=== PATIENT | female | born 1975 | race Caucasian/White ===

== ENCOUNTER 2019-11-14 18:06 | Emergency (ER) | payer OTHER, SELFPAY ==
[2019-11-14 18:24] VITALS: BP 98/59; PULSE 86; RESP 20; TEMP 36.9; O2SAT 100
--- NOTE | 2019-11-14 19:22 | ED.URI ---
HPI - URI/Sore Throat General Chief Complaint: Upper Respiratory Infection Stated Complaint: NINA/NAUSEA/COUGH/LUNGS HEAVY/PAINFUL URINATION/FEVE Time Seen by Provider: 11/14/19 19:09 Source: patient Mode of arrival: ambulatory Limitations: no limitations History of Present Illness HPI Narrative: 44-year-old female presents for evaluation of cough, fever max 100.9, nasal congestion, body aches, rhinorrhea, chest fullness that developed yesterday. She has been exposed to her with similar symptoms. She is also reporting increased urination that developed last night along with occasional burning after urinary stream. She states she has not had an appetite and has not drink any fluids since yesterday. Urine is more concentrated. She reports normal amounts of urine today. She is used Mucinex and Tylenol for her symptoms. No prior history of urinary tract infections, renal stones. She denies any shortness of breath, chest pain, wheezing, abdominal pain, flank pain, vomiting, diarrhea, weakness Related Data Home Medications Medication Instructions Recorded Confirmed acetaminophen [Tylenol] 325 mg PO ONCE PRN 11/14/19 11/14/19 cetirizine [Zyrtec] 10 mg PO DAILY 11/14/19 11/14/19 Allergies Allergy/AdvReac Type Severity Reaction Status Date / Time No Known Allergies Allergy Verified 11/14/19 18:33 Review of Systems Review of Systems: Narrative: CONSTITUTIONAL: Reports fever, chills, sweats. EYES: Denies visual changes, redness, or discharge. ENT: Reports rhinorrhea, congestion. Denies sore throat, otalgia. CARDIOVASCULAR: Denies chest pain, palpitations, or edema. RESPIRATORY: Denies wheezing, dyspnea. Reports cough, chest fullness GASTROINTESTINAL: Denies abdominal pain, vomiting, or diarrhea. Reports nausea GENITOURINARY: Denies hematuria, malordous urine. Reports urinary frequency, occasional dysuria after urinary stream. SKIN: Denies rash or itching. MUSCULOSKELETAL: Denies back pain, joint pain, swelling. Reports myalgias. NEUROLOGIC: Denies headache, numbness, or weakness. All systems reviewed & are unremarkable except as noted in HPI and below [facility] Family History Family History (Updated 04/22/16 @ 23:19 by DOCTOR UNKNOWN) Father Carcinoma of colon, Onset Age: 61 Family history of type 2 diabetes mellitus Family history of diabetes mellitus in first degree relative Patient's father is Social History Social History Smoking status: Never smoker Alcohol intake: current Comments At the time of my signature, I agree with nursing past medical, surgical, social and family history. There is no relevant family history pertinent to the presenting complaint. Exam Narrative: Exam Narrative: GENERAL: No distress, well appearing, well nourished, alert and calm HEAD: Normocephalic, atraumatic. No sinus tenderness noted EYES: Pupils equal, round. Extraocular movements intact. Conjunctivae without redness or drainage. EARS: Tympanic membranes without erythema. TM landmarks intact with good light reflex. Ear canals without discharge. NOSE: Nares patent. Nasal turbinates noninflamed. No nasal discharge MOUTH: Mucous membranes moist. No lesions. No cyanosis. Dentition grossly normal. THROAT: Oropharynx without signs erythema, exudates or lesions. Tonsils not enlarged. NECK: Supple. No lymphadenopathy. RESPIRATORY: Airway patent. Chest clear to auscultation bilaterally. Breath sounds equal bilaterally. No retractions. CARDIOVASCULAR: Regular rate and rhythm. No murmurs, rubs, gallops, or clicks. Capillary refill <2 seconds. GASTROINTESTINAL: Soft, nontender, non-distended. Bowel sounds normoactive. No masses. No organomegaly. No CVA tenderness MUSCULOSKELETAL: Range of motion grossly normal in all four extremities. Strength grossly normal in all four extremities. No edema. No swelling SKIN: Color normal. Warm and dry. No rashes. NEURO: Alert. Motor intact in all extremities. Muscle tone
== END 2019-11-14 19:37 | disposition home or self-care (01) ==
PROVIDERS: Emergency Provider Nurse Practitioner; PCP Family Medicine
DX: J10.1 Influenza due to other identified influenza virus with other respiratory manifestations (principal); R35.0 Frequency of micturition
CPT/HCPCS: 81003; 87086; 87088; 87804; 99213; G0463

== ENCOUNTER 2020-06-11 11:40 | Day surgery (SDC) | payer OTHER, SELFPAY ==
[2020-06-11] VITALS (11 sets, daily range): BP systolic 94–119; BP diastolic 50–72; PULSE 66–105; RESP 13–18; TEMP 36.4–36.7; O2SAT 98–100; BMI 24.6
--- NOTE | ~2020-06-11 | CT_ITS ---
EXAMINATION: CT abdomen pelvis w con DATE: 06/11/2020 13:54 INDICATION: Abdomen pain, nausea and vomiting TECHNIQUE: Computed tomography (CT) of the abdomen and pelvis was performed with 100 cc Omnipaque 350 intravenous contrast. The dose-length product was 306.25 mGy-cm. Automated exposure control and iter ative reconstruction technique were employed. COMPARISON: None. FINDINGS: Lung bases unremarkable. No significant pleural or pericardial effusion. Heart size normal. No significant vascular abnormality. No lymphadenopathy. Fatty infiltration of the liver. The spleen, pancreas, adrenal glands and kidneys are unremarkable. G allbladder is present. There is a thickened enhancing appendix containing appendicoliths and surround ing inflammatory change, compatible with acute appendicitis. No evidence for perforation. Appendix me asures 11 mm transverse. Small amount of free fluid in the pelvis. There is fluid in the small bowel, likely ileus. No lymphadenopathy. No acute osseous abnormality. IMPRESSION: 1. Acute uncomplicated appendicitis. Reviewed, dictated and finalized at location B.
[2020-06-11 12:26] LABS: Basophils Absolute Auto 0.1 K/mm3 (0.0-0.1); Basophils Percent Auto 0.4 % (0.2-1.2); Eosinophils Absolute Auto 0.5 K/mm3 (0-0.3); Eosinophils Percent Auto 3.6 % (0-4.4); Hemoglobin 9.4 g/dL (12.0-15.0); Immature Granulocyte Absolute 0.07 K/mm3 (0.00-0.031); Immature Granulocyte Percent A 0.5 % (0-0.5); Lymphocytes Absolute Auto 1.22 K/mm3 (0.9-3.2); Lymphocytes Percent Auto 8.6 % (18.3-44.2); Mean Corpuscular HGB Conc 31.3 g/dl (32-36); Mean Corpuscular Hemoglobin 24.3 pg (26-34); Mean Corpuscular Volume 77.5 fl (80-100); Mean Platelet Volume 10.6 fl (7.4-10.4); Monocytes Percent Auto 6.9 % (2.6-8.5); Neutrophils Absolute Auto 11.4 K/mm3 (1.3-6.7); Platelet Count Result 213 k/mm3 (150-375); Red Blood Count 3.87 M/mm3 (4.2-5.4); Red Cell Distribution Width 16.1 % (11.5-14.5); White Blood Count 14.3 K/mm3 (4.5-10.0)
[2020-06-11 12:34] LABS: Add Urine Microscopic? YES; Appearance Urine Clear (Clear); Bacteria Urine Trace /hpf; Bilirubin Urine Negative (Negative); Blood Urine 1+ (Negative); Color Urine Yellow (Yellow); Glucose Urine UA Negative (Negative); Ketones Urine 1+ mg/dL (Negative); Leukocyte Esterase Ur Trace LEU/UL (Negative); Mucus Urine Rare /lpf; Nitrate Urine Negative (Negative); Protein Urine Negative (Negative); Squamous Epithelial Cell Urine Many /hpf (Few); Urobilinogen Urine Negative mg/dL (<2.0)
[2020-06-11 12:46] LABS: Alanine Aminotransferase 13 U/L (4-35); Albumin Level 4.1 g/dL (3.5-5.1); Alkaline Phosphatase 40 U/L (38-126); Anion Gap 7 mmol/L (8-16); Aspartate Amino Transferase 21 U/L (14-36); Bilirubin,Total 0.9 mg/dL (0.2-1.3); Blood Urea Nitrogen 9 mg/dL (7-17); Calcium 8.8 mg/dL (8.4-10.2); Carbon Dioxide 25 mmol/L (22-30); Chloride 102 mmol/L (98-107); Estimated CRCL calculation 62 ml/min; Estimated Glomerular Filt Rate > 60; Glucose 106 mg/dL (65-105); Lipase 39 U/L (23-300); Sodium 134 mmol/L (137-145)
--- NOTE | 2020-06-11 14:06 | ED.ABDPAIN ---
HPI - Abdominal Pain General Chief Complaint: Abdominal Pain Stated Complaint: abd pain Time Seen by Provider: 06/11/20 14:04 History of Present Illness HPI narrative: Nausea, vomiting, and lower abdominal discomfort since yesterday. The pain is moderate. Worse with movement, especially hip flexion. Additionally she had some diarrhea yesterday. No fever, CP, SOB. No previous abdominal surgeries. Related Data Home Medications Medication Instructions Recorded Confirmed acetaminophen [Tylenol] 325 mg PO ONCE PRN 11/14/19 06/11/20 cetirizine [Zyrtec] 10 mg PO DAILY 11/14/19 06/11/20 Allergies Allergy/AdvReac Type Severity Reaction Status Date / Time No Known Allergies Allergy Verified 06/11/20 15:58 Review of Systems Review of Systems: All systems reviewed & are unremarkable except as noted in HPI and below Constitutional: Constitutional: Denies fever(s) Cardiovascular: Cardiovascular: Denies chest pain Respiratory: Respiratory: Denies dyspnea Gastrointestinal: Gastrointestinal: Reports abdominal pain, Reports diarrhea, Reports nausea and Reports vomiting Genitourinary: Genitourinary: Denies dysuria Musculoskeletal: Musculoskeletal: Denies back pain Neurologic: Denies dizziness, Denies numbness and Denies weakness PMF Family History Family History Father Carcinoma of colon, Onset Age: 61 Family history of type 2 diabetes mellitus Family history of diabetes mellitus in first degree relative Patient's father is Social History Social History Smoking status: Never smoker Alcohol intake: current Gender identity (if verbalized by the patient): Female Exam Const: General: healthy appearing, no acute distress and alert Orientation/consciousness: patient oriented x3 HENMT: Head: normal to inspection Neck: Neck: normal visual inspection and no lymphadenopathy Chest: Chest palpation & inspection: no tenderness Resp: Effort & Inspection: normal respiratory effort Auscultation: clear to auscultation bilaterally, no rales, no rhonchi and no wheezes Cardio: Jugular venous distension: no JVD Rate: regular rate Rhythm: regular rhythm Heart sounds: no murmurs GI: Inspection: non-distended GI Palp: Yes Soft to palpation and Yes Tenderness to palpation present (GI) (suprapubic) Skin: General skin exam: normal color Neuro: General: patient oriented x3 and moves all extremities Speech: normal speech Extrem: General: no edema Psych: Appearance: well kempt Affect: normal affect Course Vital Signs Vital signs: Vital Signs Temperature 36.7 C 06/11/20 12:06 Pulse Rate 105 H 06/11/20 12:06 Respiratory Rate 18 06/11/20 12:06 Blood Pressure 119/72 06/11/20 12:06 Pulse Oximetry 100 06/11/20 12:06 Temperature 36.7 C 06/11/20 16:35 Pulse Rate 68 06/11/20 17:15 Respiratory Rate 14 06/11/20 17:15 Blood Pressure 115/50 L 06/11/20 17:15 Pulse Oximetry 100 06/11/20 17:12 MDM - Abdominal Pain Lab Data Result diagrams: 06/11/20 12:18 06/11/20 12:18 Labs: Lab Results 06/11/20 06/11/20 06/11/20 Range/Units 12:18 12:18 12:18 WBC 14.3 H (4.5-10.0) K/mm3 RBC 3.87 L (4.2-5.4) M/mm3 Hgb 9.4 L (12.0-15.0) g/dL Hct 30.0 L (37.0-47.0) % MCV 77.5 L (80-100) fl MCH 24.3 L (26-34) pg MCHC 31.3 L (32-36) g/dl RDW 16.1 H (11.5-14.5) % Plt Count 213 (150-375) k/mm3 MPV 10.6 H (7.4-10.4) fl Immature Gran % (Auto) 0.5 (0-0.5) % Neut % (Auto) 80.0 H (45.5-73.1) % Lymph % (Auto) 8.6 L (18.3-44.2) % [place] % (Auto) 6.9 (2.6-8.5) % Eos % (Auto) 3.6 (0-4.4) % Baso % (Auto) 0.4 (0.2-1.2) % Lymph # (Auto) 1.22 (0.9-3.2) K/mm3 [place] # (Auto) 1.0 H (0.1-0.6) K/mm3 Eos # (Auto) 0.5 H (0-0.3) K/mm3 Baso # (Auto) 0.1 (0.0-0.1)
[2020-06-11] MEDS: ONDANSETRON INJ 4 MG/2 ML VIAL IV PUSH (15:11)
[2020-06-11] MEDS: MORPHINE SULFATE (*CRX) 4 MG/ML INJ IV PUSH (15:11)
--- NOTE | 2020-06-11 15:20 | WPDANESEPPF ---
Anes - Initial Pre Proc Eval Procedure: Operation Date: 06/11/20 15:30 Proposed Procedures p Laparoscopic Appendectomy - Renata Abdalla MD Date/Time: 06/11/20 15:20 Surgeon: Renata Abdalla MD Pre Op Diagnosis: abd pain Patient Data Age: 45 Gender: F Height: 5 ft 2 in Weight: 63 kg Last Vital Signs Temp 36.7 C 06/11/20 12:06 Pulse 84 06/11/20 15:12 Resp 14 06/11/20 15:12 BP 100/58 L 06/11/20 15:12 Pulse Ox 98 06/11/20 15:12 Allergies Allergy/AdvReac Type Severity Reaction Status Date / Time No Known Allergies Allergy Verified 06/11/20 14:28 Home Medications Medication Instructions Recorded Confirmed Type acetaminophen [Tylenol] 325 mg PO ONCE PRN 11/14/19 11/14/19 History benzonatate [Tessalon Perles] 100 mg PO TID PRN #14 cap 11/14/19 Rx cetirizine [Zyrtec] 10 mg PO DAILY 11/14/19 11/14/19 History Laboratory Tests 06/11/20 06/11/20 06/11/20 12:18 12:18 12:18 WBC 14.3 K/mm3 H K/mm3 (4.5-10.0) RBC 3.87 M/mm3 L M/mm3 (4.2-5.4) Hgb 9.4 g/dL L g/dL (12.0-15.0) Hct 30.0 % L % (37.0-47.0) MCV 77.5 fl L fl (80-100) MCH 24.3 pg L pg (26-34) MCHC 31.3 g/dl L g/dl (32-36) RDW 16.1 % H % (11.5-14.5) Plt Count 213 k/mm3 k/mm3 (150-375) MPV 10.6 fl H fl (7.4-10.4) Immature Gran % (Auto) 0.5 % % (0-0.5) Neut % (Auto) 80.0 % H % (45.5-73.1) Lymph % (Auto) 8.6 % L % (18.3-44.2) [place] % (Auto) 6.9 % % (2.6-8.5) Eos % (Auto) 3.6 % % (0-4.4) Baso % (Auto) 0.4 % % (0.2-1.2) Lymph # (Auto) 1.22 K/mm3 K/mm3 (0.9-3.2) [place] # (Auto) 1.0 K/mm3 H K/mm3 (0.1-0.6) Eos # (Auto) 0.5 K/mm3 H K/mm3 (0-0.3) Baso # (Auto) 0.1 K/mm3 K/mm3 (0.0-0.1) Abs Immat Gran (auto) 0.07 K/mm3 H K/mm3 (0.00-0.031) Absolute Neuts (auto) 11.4 K/mm3 H K/mm3 (1.3-6.7) Absolute Nucleated RBC 0.0 K/mm3 K/mm3 (0.0-0.012) Nucleated RBC % 0.0 % % (0.0-0.2) Sodium 134 mmol/L L mmol/L (137-145) Potassium 4.0 mmol/L mmol/L (3.4-5.0) Chloride 102 mmol/L mmol/L (98-107) Carbon Dioxide 25 mmol/L mmol/L (22-30) Anion Gap 7 mmol/L L mmol/L (8-16) BUN 9 mg/dL mg/dL (7-17) Creatinine 0.80 mg/dL mg/dL (0.7-1.0) Estim Creat Clear Calc 62 ml/min ml/min Estimated GFR > 60 (59 - ) Glucose 106 mg/dL H mg/dL (65-105) Calcium 8.8 mg/dL mg/dL (8.4-10.2) Total Bilirubin 0.9 mg/dL mg/dL (0.2-1.3) AST 21 U/L U/L (14-36) ALT 13 U/L U/L (4-35) Alkaline Phosphatase 40 U/L U/L (38-126) Total Protein 7.0 g/dL g/dL (6.3-8.2) Albumin 4.1 g/dL g/dL (3.5-5.1) Lipase 39 U/L U/L (23-300) Urine Color Yellow (Yellow) Urine Appearance Clear (Clear) Urine pH 5.0 (5.0-9.0) Ur Specific [place] 1.020 (1.001-1.035) Urine Protein Negative mg/dL mg/dL (Negative) Urine Glucose (UA) Negative mg/dL mg/dL (Negative) Urine Ketones 1+ mg/dL H mg/dL (Negative) Ur Blood (Man) 1+ H (Negative) Urine Nitrate Negative (Negative) Urine Bilirubin Negative (Negative) Urine Urobilinogen Negative mg/dL mg/dL (<2.0) Leukocyte Esterase Rfl Trace DAVE/UL H DAVE/UL (Negative) Urine RBC 3-5 /hpf H /hpf (0-2) Urine WBC 10-15 /hpf H /hpf Ur Squamous Epith Cells Many /hpf H /hpf (Few) Urine Bacteria Trace /hpf /hpf Urine Mucus Rare /lpf /lpf Patient hx anesthesia problems: none Family hx anesthesia problems: none [facility] Family History Family History (Reviewed 06/11/20 @ 15:20 by Marlon Guzman
--- NOTE | 2020-06-11 15:22 | PM.IMHP ---
H&P: HPI History of Present Illness Date/Time: 06/11/20 15:22 Chief complaint: abd pain Narrative: Sophia Blunt is a 45 year old female presenting to ED c/o 1 d h/o lower abd pain. Pt reports pain is mostly located in suprapubic area and sl off to right side. Pt reports pain is moderated but worse c movt. Pt reports decreased appetite, but no N/V. Pt reports some diarrhea. Pt denies previous episodes. Review of Systems Constitutional: Constitutional: Denies anorexia, Denies body ache(s), Denies chills, Denies fatigue, Denies headache(s), Denies lethargy, Denies malaise, Denies poor appetite, Denies weight gain and Denies weight loss Eyes: Eyes: Reports no additional eye complaints and Denies change in vision ENT: Reports system reviewed and no additional complaints, except as documented, Denies headache(s), Denies hearing loss and Denies sore throat Cardiovascular: Cardiovascular: Denies chest pain, Denies palpitations and Denies dyspnea Respiratory: Respiratory: Denies cough and Denies dyspnea Gastrointestinal: Gastrointestinal: Reports abdominal pain, Reports bloating, Denies change in stool character, Denies constipation, Denies heartburn, Reports diarrhea, Denies nausea and Denies vomiting Genitourinary: Genitourinary: Denies urinary frequency, Denies dysuria and Denies urinary urgency Musculoskeletal: Musculoskeletal: Reports no additional musculoskeletal complaints Integumentary/Breasts: Skin/Breast: Reports system reviewed and no additional complaints, except as docu, Denies pruritus, Denies lesions and Denies wounds Neurologic: Reports system reviewed and no additional complaints, except as documented, Denies confusion and Denies headache(s) Psychiatric: Psychiatric: Reports no additional psychiatric complaints and Denies confusion Endocrine: Endocrine: Reports no additional endocrine complaints, Denies fatigue and Denies palpitations Hematologic/Lymphatic: Hematologic/Lymphatic: Reports no additional hematologic/lymphatic complaints Allergic/Immunologic: Allergic/Immunologic: Reports no additional allergic/immunologic complaints [facility] Family History Family History Father Carcinoma of colon, Onset Age: 61 Family history of type 2 diabetes mellitus Family history of diabetes mellitus in first degree relative Patient's father is Social History Social History Smoking status: Never smoker Alcohol intake: current Gender identity (if verbalized by the patient): Female Meds Home Medications and Allergies Home Medications Medication Instructions Recorded Confirmed Type acetaminophen [Tylenol] 325 mg PO ONCE PRN 11/14/19 11/14/19 History benzonatate [Tessalon Perles] 100 mg PO TID PRN #14 cap 11/14/19 Rx cetirizine [Zyrtec] 10 mg PO DAILY 11/14/19 11/14/19 History Allergies Allergy/AdvReac Type Severity Reaction Status Date / Time No Known Allergies Allergy Verified 06/11/20 14:28 Vital Signs Vital Signs - 24 hr 06/11/20 12:06 06/11/20 14:41 06/11/20 15:12 Temperature 36.7 C Pulse Rate 105 H 82 84 Respiratory Rate 18 14 14 Blood Pressure 119/72 100/58 L 100/58 L Pulse Oximetry 100 100 98 Exam Const: General: cooperative, healthy appearing, no acute distress and well developed; No confusion Orientation/consciousness: patient oriented x3 and No confusion HENMT: Head: normal to inspection, normocephalic and atraumatic Mouth: Yes Normal oral and palatal mucosa present and Yes moist mucous membranes Teeth and gingiva: dentition normal Eyes: Conjunctivae: conjunctivae normal Pupils: Equal, round and reactive pupils present EOM: EOMs intact bilaterally Neck: Neck: normal visual inspection, full ROM, no lymphadenopathy, trachea midline and supple Lymphatic: no lymphadenopathy noted Chest: Chest palpation & inspection: normal inspection of the kel
--- NOTE | 2020-06-11 15:27 | WPDHPUPDATE1 ---
History and Physical Update Update Date/Time: 06/11/20 15:27 History and Physical has been reviewed, including an updated exam of the patient. There are NO changes in the patient's condition. Risks, benefits, and alternatives have been discussed and questions answered. Patient agrees to proceed with procedure.
[2020-06-11] MEDS: BUPIVACAINE/EPINEPHRINE 0.5% 10 ML VIAL 20 ML INFILTRATE (16:01)
--- NOTE | 2020-06-11 16:26 | P.OP_ITS ---
Procedure Note - Detailed Date of procedure: 06/11/20 Pre-op diagnosis: abd pain acute appendicitis Post-op diagnosis: same Procedure performed: Laparoscopic appendectomy Description of procedure: The patient was brought into the operating room placed in the supine position. After adequate induction of general anesthesia, the patient was prepped and draped in normal sterile fashion. A time-out was then done to verify the patient's identity as well as the procedure being performed. I began by making a 5 mm incision in the infraumbilical region. A 5 mm Optiview trocar within used to gain access into the peritoneal cavity. Once into the peritoneal cavity, CO2 gas was insufflated. After adequate pneumoperitoneum was achieved, the laparoscope was placed into the 5 mm trocar. Under direct visualization, I went ahead and placed a further 5 mm suprapubic port as well as a 12 mm port in the left lower abdomen. At this point, I was able to visualize cecum. The cecum was retracted both cephalad and medial, and this allowed us to expose the appendix. The appendix was noted to be very dilated, injected, and inflamed. The appendix was noted to be covered and adhered to the sigmoid colon, I was bluntly able to free it up from the sigmoid. There was no obvious perforation of the appendix, although the mid body of the appendix looked to be almost perforated and thin walled. I then grasped the appendix near the tip of the appendix and retracted both anterior and lateral. This allowed exposure of the base of the appendix with the cecum. I then created a window with the Rosemarie dissector between the appendix and the mesoappendix at the base of the appendix. Once this was achieved, a vascular staple load on the Endo-JUSTIN was placed through the 12 mm port site and subsequently transected the mesoappendix. I then reloaded the Endo-JUSTIN with a blue staple load and transected the base of the appendix with the cecum. Once the appendiceal specimen was completely detached, a Endo pouch was placed through the 12 mm port site. The appendix was placed into the Endo pouch and removed through the 12 mm port site. The appendix will now be sent to pathology for further review. I then visualized t he right lower quadrant, both staple lines were noted to be intact and hemostatic. No other pathology was noted in the right lower quadrant or pelvis. I then moved the laparoscope to the 5 mm suprapubic port. I then visualized our port of entry at the 5 mm infraumbilical site. No iatrogenic injury or other pathology was seen in the upper abdomen. I then desufflated the abdomen and all ports were removed. The fascia of the 12 mm port site was closed with an 0 Vicryl figure of 8 suture. All port sites were then closed with 4 O Monocryl subcuticular suture. The patient tolerated the procedure well and was extubated in the operating room postoperatively. The patient will be transferred to the recovery room in stable condition. Anesthesia: GETA Surgeon: Renata Abdalla MD Estimated blood loss (mL): 5 Drains: No Packing: No Pathology: yes Complications: No immediate complications Condition: stable Disposition: PACU Findings: Acute uncomplicated appendicitis
[2020-06-11] MEDS: LACTATED RINGERS 1,000 ML 30 ML IV CONT ×2 (16:35)
[2020-06-11] MEDS: fentaNYL CITRATE INJ (*CRX) 100 MCG/2 ML VIAL 25 MCG IV PUSH (16:53)
[2020-06-11] MEDS: oxyCODONE HCL (*CRX) 5 MG TAB IR PO (17:40)
== END 2020-06-11 18:00 | disposition home or self-care (01) ==
LOC: ANHED 14:56 → ANHSURGERY 15:03
PROVIDERS: Emergency Medicine; Emergency Provider Emergency Medicine; PCP Family Medicine; Visit Provider Surgery
PROC: 0DTJ4ZZ Resection of Appendix, Percutaneous Endoscopic Approach (ICD-10-PCS; CPT 44970; principal; 2020-06-11 15:30)
DX: K35.30 Acute appendicitis with localized peritonitis, without perforation or gangrene (principal)
CPT/HCPCS: 44970; 36415; 74177; 80053; 81001; 81025; 83690; 85025; 87086; 88304; A9270; J0330; J1100; J2250; J2270; J2405; J2543; J2704; J2710; J3010; J7030; J7120; Q9967

== ENCOUNTER 2020-09-28 17:50 | Outpatient (CLI) | payer OTHER, SELFPAY ==
--- NOTE | ~2020-09-28 | XR_ITS ---
EXAMINATION: XR chest 2V EXAM DATE: 09/28/2020 18:15 INDICATION: R09.89 - Medial Chest Tightness X 1 Week. TECHNIQUE: Frontal and lateral projections of the chest obtained and reviewed. There is no prior hank dy for comparison. FINDINGS: The lungs are clear. There are no pleural effusions. The cardiomediastinal silhouette is within normal limits. There is no pneumothorax suspected. The bones and soft tissues are unremarkab le. IMPRESSION: Normal chest x-ray exam. Reviewed, dictated and finalized at location A. [employer] IMPRESSION: Normal chest x-ray exam.
== END 2020-09-28 17:51 | disposition home or self-care (01) ==
PROVIDERS: PCP Family Medicine; Visit Provider Family Medicine
DX: R09.89 Other specified symptoms and signs involving the circulatory and respiratory systems (principal)
CPT/HCPCS: 71046

== ENCOUNTER → 2020-12-07 09:54 | Outpatient (CLI) | payer OTHER, SELFPAY ==
--- NOTE | ~2020-12-07 | US_ITS ---
EXAMINATION: US pelvic complete w TV EXAM DATE: 12/07/2020 10:46 INDICATION: N92.0 - Excessive and frequent menstruation with regular cycle. Low iron. Menorrhagia. TECHNIQUE: Pelvic transabdominal and transvaginal sonogram was performed. There are multiple graysca le and Doppler images available for interpretation. There is no prior study for comparison. FINDINGS: Uterus measures 9.8 x 5.6 x 6.2 cm, and is morphologically normal. Endometrial stripe gi sures 4 mm, within normal limits. There is no free pelvic fluid. Right adnexa: The ovary measures 2.3 x 1.8 x 2.2 cm and is morphologically normal. Ovarian vascular f low confirmed. Left adnexa: The ovary measures 2.9 x 2.1 x 2.0 cm and is morphologically normal. Ovarian vascular fl ow confirmed. IMPRESSION: 1. Unremarkable pelvic ultrasound exam. Reviewed, dictated and finalized at location A.
== END ==
PROVIDERS: PCP Family Medicine; Visit Provider Student in an Organized Health Care Education/Training Program
DX: N92.0 Excessive and frequent menstruation with regular cycle (principal)
CPT/HCPCS: 76830; 76856

== ENCOUNTER 2021-01-07 09:12 | Outpatient (CLI) | payer OTHER, SELFPAY ==
[2021-01-07 09:33] LABS: Hematocrit 39.9 % (37.0-47.0); Hemoglobin 12.9 g/dL (12.0-15.0)
== END 2021-01-07 09:13 | disposition home or self-care (01) ==
LOC: ANHSURGERY 09:15
PROVIDERS: Anesthesiology; PCP Family Medicine; Visit Provider Student in an Organized Health Care Education/Training Program
DX: Z01.812 Encounter for preprocedural laboratory examination (principal); D64.9 Anemia, unspecified
CPT/HCPCS: 36415; 85014; 85018

== ENCOUNTER → 2021-01-12 03:39 | Outpatient (CLI) | payer OTHER, SELFPAY ==
[2021-01-12 20:31] LABS: SARS-CoV-2 RNA PCR Negative
== END ==
PROVIDERS: PCP Family Medicine; Visit Provider Student in an Organized Health Care Education/Training Program
DX: Z01.812 Encounter for preprocedural laboratory examination (principal); Z20.822 Contact with and (suspected) exposure to COVID-19
CPT/HCPCS: C9803; U0003; U0005

== ENCOUNTER 2021-01-15 01:56 | Day surgery (SDC) | payer OTHER, SELFPAY ==
[2021-01-06 12:05] VITALS: BMI 24.3
--- NOTE | 2021-01-14 09:46 | WPDANESEPPF ---
Anes - Initial Pre Proc Eval Procedure: Operation Date: 01/15/21 09:30 Proposed Procedures p Hysteroscopy Dilation and Curettage Ellen Ablation With Possible Myosure - Minoo Garcia MD Date/Time: 01/14/21 09:46 Surgeon: Minoo Garcia MD Pre Op Diagnosis: Menorrhagia Patient Data Age: 46 Gender: F Height: 1.57 m Weight: 60.3 kg Allergies Allergy/AdvReac Type Severity Reaction Status Date / Time No Known Allergies Allergy Verified 01/07/21 08:36 Home Medications Medication Instructions Recorded Confirmed Type polysaccharide iron complex 150 mg 150 mg PO BID #60 cap 11/05/20 01/06/21 Rx iron capsule multivitamin,tx-minerals 1 cap PO DAILY 11/19/20 01/06/21 History calcium-magnesium 3 tablet PO DAILY 01/06/21 01/06/21 History vitamin D3-vitamin K2 [D3 + K2 1 tablet PO EVERY OTHER DAY 01/06/21 01/06/21 History DOTS] Patient hx anesthesia problems: none Family hx anesthesia problems: none PMFSH Past Medical History Medical History Chronic anemia COVID-19 History of vaginal delivery x 3 Menometrorrhagia Surgical History Surgical History Hx of appendectomy [place] teeth removed Family History Family History Father Carcinoma of colon, Onset Age: 61 Family history of type 2 diabetes mellitus Family history of diabetes mellitus in first degree relative Patient's father is Social History Social History Social History: Smoking packs per day: 1 Smoking cigarettes per day: 20.0 Years smoked: 10 Smoking pack-years: 10.00 Smoking status: Former smoker Second hand tobacco smoke exposure: No Smoking end date: 09/25/04 Alcohol intake: current Drinks per week: 1 Substance use: never Substance use type: does not use Living arrangements: with family Gender identity (if verbalized by the patient): Female Spiritual care concerns: No Anes - Eval Final PreProcedure Day of Procedure 01/14/21 09:46 Patient weight: normal Heart: regular rate and rhythm Lungs: clear to auscultation and normal air movement Airway: Mallampati scale class II Neurological: alert and oriented Last oral intake: >/= 8 hours ASA classification: II Emergent: no Anesthetic plan: proceed Anesthesia type and monitoring: general GIVS and LMA Informed Consent: The patient's anesthetic plan and its attendant risks and benefits were discussed with the patient/family/POA. Questions were solicited and answers provided to the satisfaction of the patient/family/POA.
--- NOTE | 2021-01-15 07:10 | PM.IMHP ---
H&P: HPI History of Present Illness Date/Time: 01/15/21 07:10 Patient is a 46 year old woman with a history of menorrhagia. Menarche age 15. Patient reports heavy menses since time of menarche. In her late teens or early 20s, patient was started on OCPs for cycle regulation. She stopped OCPs for childbearing and did not restart hormonal regulation afterwards because had a vasectomy. She reports regular menses that last approximately 7 days. Reports heavy flow on cycle days 2-4. At heaviest time, patient reports changing moderate to fully saturated pads and tampons frequently as well as the passage of large blood clots. Reports occasional dysmenorrhea. Recently, patient developed shortness of breath and a heaviness feeling in her chest. 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 Discussion had with patient regarding management options and patient desires initial surgical management with an endometrial ablation. In general, she reports feeling well today without complaints. Chief Complaint: menorrhagia Review of Systems Review of Systems: All systems reviewed & are unremarkable except as noted in HPI and below Constitutional: Constitutional: Reports as per HPI, Reports no additional constitutional complaints, Denies chills, Denies fever(s), Denies headache(s) and Denies night sweats Eyes: Eyes: Reports as per HPI and Reports no additional eye complaints ENT: Reports system reviewed and no additional complaints, except as documented, Reports as per HPI, Reports Normal hearing present and Denies headache(s) Cardiovascular: Cardiovascular: Reports as per HPI, Reports no additional cardiovascular complaints, Denies chest pain and Denies dyspnea Respiratory: Respiratory: Reports as per HPI, Reports no additional respiratory complaints, Denies cough and Denies dyspnea Gastrointestinal: Gastrointestinal: Reports as per HPI, Reports no additional gastrointestinal complaints, Denies abdominal pain, Denies change in bowel habits, Denies change in stool character, Denies nausea and Denies vomiting Genitourinary: Genitourinary: Reports no additional female genitourinary complaints, Reports as per HPI, Denies abnormal vaginal bleeding, Denies genital lesions, Reports menorrhagia, Denies hot flashes, Denies dyspareunia, Denies pelvic pain, Denies sexual dysfunction, Denies urinary incontinence, Denies vaginal discharge, Denies vaginal dryness and Denies vaginal odor Musculoskeletal: Musculoskeletal: Reports no additional musculoskeletal complaints and Reports as per HPI Integumentary/Breasts: Skin/Breast: Reports system reviewed and no additional complaints, except as docu, Reports as per HPI, Denies breast pain and Denies nipple discharge Neurologic: Reports system reviewed and no additional complaints, except as documented, Reports as per HPI, Reports Normal hearing present and Denies headache(s) Psychiatric: Psychiatric: Reports no additional psychiatric complaints, Reports as per HPI, Denies anxiety and Denies depression Endocrine: Endocrine: Reports no additional endocrine complaints and Reports as per HPI Hematologic/Lymphatic: Hematologic/Lymphatic: Reports no additional hematologic/lymphatic complaints and Reports as per HPI Allergic/Immunologic: Allergic/Immunologic: Reports no additional allergic/immunologic complaints and Reports as per HPI PMFSH Past Medical History Medical History Chronic anemia COVID-19 History of vaginal delivery x 3 Menometrorrhagia Surgical History Surgical History Hx of appendectomy [place] teeth removed Family History Family History Father Carcinoma of colon, Onset Age: 61 Family history of type 2 diabetes mellitus Family history of diabetes mellitus
[2021-01-15] MEDS: ACETAMINOPHEN 500 MG TABLET 1000 MG PO (07:49)
[2021-01-15] MEDS: LACTATED RINGERS 1,000 ML 30 ML IV CONT (07:51)
[2021-01-15 08:12] VITALS: BP 110/72; PULSE 65; RESP 18; TEMP 36.8; O2SAT 100
--- NOTE | 2021-01-15 09:15 | WPDHPUPDATE1 ---
History and Physical Update Update Date/Time: 01/15/21 09:15 History and Physical has been reviewed, including an updated exam of the patient. There are NO changes in the patient's condition. Risks, benefits, and alternatives have been discussed and questions answered. Patient agrees to proceed with procedure.
[2021-01-15 10:09] VITALS: BP 100/64; PULSE 63; RESP 10; O2SAT 100
--- NOTE | 2021-01-15 10:24 | P.OP_ITS ---
Procedure Note - Detailed Date of procedure: 01/15/21 Pre-op diagnosis: Menorrhagia Post-op diagnosis: same Procedure performed: Hysteroscopy, dilation and curettage, endometrial ablation with Ellen Description of procedure: The patient was taken to the operating room where she self-transferred to the operating room table. She was placed in dorsal supine position. Anesthesia was administered and found to be adequate. The patient was repositioned in dorsal lithotomy position with the use of Surinder stirrups. She was prepped and draped in usual sterile fashion. A red rubber catheter was used to drain the bladder of 25 cc of clear urine. A bivalve speculum was inserted into the vagina. The cervix was well visualized. The anterior lip of the cervix was grasped with a single-tooth tenaculum. A paracervical block was performed with 1% plain lidocaine. 5 cc of lidocaine was administered on either side for a total of 10 cc. The cervix was then sounded to 8.5 cm. The cervix was serially dilated to accommodate a hysteroscope. The hysteroscope was introduced into the endometrial cavity. A general survey was performed. Endometrial cavity appeared clear with virtually no tissue seen. Bilateral tubal ostia were visualized. A few pictures were taken. The hysteroscope was removed. A medium-size rigid curette was used to perform a curettage. All quadrants of the endometrial cavity were explored. A minimal amount of tissue was obtained and prepared to be sent to pathology for analysis. The Ellen endometrial ablation device was then opened on the sterile field. The appropriate settings were input on the hand- held device and the array was introduced into the endometrial cavity and deployed. The cervical balloon was insufflated. An integrity check was completed and passed by the Ellen console. After the integrity check was pa ssed successfully, the ablation procedure started automatically and ran for the preset time of 120 seconds. After completion of the ablation procedure, the array was collapsed and the cervical balloon was desufflated. The device was removed. The tenaculum was removed from the anterior lip of the cervix. A minimal amount of oozing was noted from one of the tenaculum puncture sites. This area was made hemostatic with silver nitrate. Excellent hemostasis noted. The remainder of the vagina was cleansed and dried and the speculum was removed. The patient was cleansed and dried and taken out of the dorsal lithotomy position. She was awakened from anesthesia without difficulty and transferred to the recovery room in stable condition. The patient tolerated the procedure well. All sponge, lap, and instrument counts were correct at the end of the procedure. Anesthesia: MAC Surgeon: Minoo Garcia MD Estimated blood loss (mL): 5 IV fluids (mL): 700 Urine output (mL): 25 Drains: No Packing: No Pathology: yes (endometrial curettings) Complications: No immediate complications Condition: stable Disposition: same day Findings: normal appearing endometrial cavity, bilateral tubal ostia visualized, small 0.5cm nabothian cyst seen on cervix
[2021-01-15 10:30] VITALS: BP 108/65; PULSE 50; RESP 12; O2SAT 100
[2021-01-15 10:55] VITALS: BP 117/67; PULSE 60; RESP 12
== END 2021-01-15 11:00 | disposition home or self-care (01) ==
PROVIDERS: PCP Family Medicine; Visit Provider Student in an Organized Health Care Education/Training Program
PROC: 0U5B8ZZ Destruction of Endometrium, Via Natural or Artificial Opening Endoscopic (ICD-10-PCS; CPT 58563; principal; 2021-01-15 09:30)
DX: N92.0 Excessive and frequent menstruation with regular cycle (principal); Z87.891 Personal history of nicotine dependence; Z86.16 Personal history of COVID-19; D50.9 Iron deficiency anemia, unspecified; N88.8 Other specified noninflammatory disorders of cervix uteri
CPT/HCPCS: 58563; 36415; 85014; 85018; 88305; A9270; C9803; J2250; J2704; J3010; J7120; U0003; U0005

== ENCOUNTER 2021-01-20 08:17 | Outpatient (CLI) | payer OTHER, SELFPAY ==
[2021-01-20 09:11] LABS: Basophils Absolute Auto 0.1 K/mm3 (0.0-0.1); Basophils Percent Auto 0.9 % (0.2-1.2); Eosinophils Absolute Auto 0.1 K/mm3 (0-0.3); Eosinophils Percent Auto 1.3 % (0-4.4); Hematocrit 40.4 % (37.0-47.0); Hemoglobin 13.3 g/dL (12.0-15.0); Immature Granulocyte Absolute 0.01 K/mm3 (0.00-0.031); Immature Granulocyte Percent A 0.2 % (0-0.5); Lymphocytes Absolute Auto 1.33 K/mm3 (0.9-3.2); Lymphocytes Percent Auto 24.1 % (18.3-44.2); Mean Corpuscular HGB Conc 32.9 g/dl (32-36); Mean Corpuscular Hemoglobin 29.6 pg (26-34); Mean Corpuscular Volume 89.8 fl (80-100); Mean Platelet Volume 9.6 fl (7.4-10.4); Monocytes Absolute Auto 0.4 K/mm3 (0.1-0.6); Neutrophils Absolute Auto 3.6 K/mm3 (1.3-6.7); Neutrophils Percent Auto 65.5 % (45.5-73.1); Platelet Count Result 209 k/mm3 (150-375); Red Cell Distribution Width 14.7 % (11.5-14.5); White Blood Count 5.5 K/mm3 (4.5-10.0)
[2021-01-20 09:36] LABS: Alanine Aminotransferase 13 U/L (4-35); Albumin Level 4.4 g/dL (3.5-5.1); Alkaline Phosphatase 38 U/L (38-126); Anion Gap 5 mmol/L (8-16); Aspartate Amino Transferase 24 U/L (14-36); Bilirubin,Total 0.2 mg/dL (0.2-1.3); Blood Urea Nitrogen 16 mg/dL (7-17); Calcium 9.1 mg/dL (8.4-10.2); Carbon Dioxide 30 mmol/L (22-30); Chloride 104 mmol/L (98-107); Estimated Glomerular Filt Rate > 60; Glucose 86 mg/dL (65-105); Potassium 4.3 mmol/L (3.4-5.0); Sodium 139 mmol/L (137-145)
[2021-01-20 10:10] LABS: Erythrocyte Sedimentation Rate 9 mm/hr (0-20)
[2021-01-22 21:54] LABS: CRP, High Sensitivity 2.8 mg/L (***)
== END 2021-01-20 08:18 | disposition home or self-care (01) ==
PROVIDERS: PCP Family Medicine; Visit Provider Physician Assistant
DX: D50.9 Iron deficiency anemia, unspecified (principal); M25.50 Pain in unspecified joint; R09.89 Other specified symptoms and signs involving the circulatory and respiratory systems; R53.83 Other fatigue
CPT/HCPCS: 36415; 80053; 84443; 85025; 85652; 86141

== ENCOUNTER 2022-07-21 11:16 | Emergency (ER) | payer OTHER, SELFPAY ==
[2022-07-21 11:32] VITALS: BP 107/48; PULSE 88; RESP 16; TEMP 36.7; O2SAT 100
--- NOTE | 2022-07-21 11:40 | ED.URI ---
HPI - URI/Sore Throat General Chief Complaint: Upper Respiratory Infection Stated Complaint: SINUS PRESSURE Time Seen by Provider: 07/21/22 11:40 Source: patient and RN notes reviewed Mode of arrival: ambulatory Limitations: no limitations History of Present Illness HPI Narrative: [age] year male presents with concern for chronic sinusitis. Reports she has had sinus congestion, pressure, pain, ear fullness since the beginning of May. Reports on June 15 she was seen by her primary care doctor and was given Augmentin and a steroid pack and she did not have any improvement. She reports her doctor told her then to take Ruth Ann D which she did for several weeks without improvement. She denies cough, sore throat, chills, fever, sweats. MD elicited complaint: cough and sore throat Related Data Allergies Allergy/AdvReac Type Severity Reaction Status Date / Time No Known Allergies Allergy Verified 07/21/22 11:32 Review of Systems Review of Systems: CONSTITUTIONAL: Denies malaise, chills, sweats, or fever. EYES: Denies visual changes, redness, or discharge. ENT: Reports rhinorrhea. Reports congestion, sinus pain, otalgia. Denies sore throat. CARDIOVASCULAR: Denies chest pain, palpitations, or edema. RESPIRATORY: Denies cough. Denies dyspnea. GASTROINTESTINAL: Denies abdominal pain, nausea, vomiting, diarrhea SKIN: Denies rash or itching. MUSCULOSKELETAL: Denies myalgia. NEUROLOGIC: Reports headache. All systems reviewed & are unremarkable except as noted in HPI and below PMFSH Past Medical History Medical History Chronic anemia COVID-19 History of vaginal delivery x 3 Menometrorrhagia Surgical History Surgical History H/O dilation and curettage 01/15/21 History of endometrial ablation 01/15/21 History of hysteroscopy 01/15/21 Hx of appendectomy [place] teeth removed Family History Family History Father Carcinoma of colon, Onset Age: 61 Family history of type 2 diabetes mellitus Family history of diabetes mellitus in first degree relative Patient's father is Social History Social History (Updated 06/15/22 @ 15:57 by Kaitlynn Anglin Social History: Smoking packs per day: 1 Smoking cigarettes per day: 20.0 Years smoked: 10 Smoking pack-years: 10.00 Smoking status: Former smoker Second hand tobacco smoke exposure: No Smoking end date: 09/25/04 Alcohol intake: current Alcohol use details: Occasionally Substance use: never Substance use type: does not use Gender identity (if verbalized by the patient): Female Sexual Orientation (if Verbalized by the Patient): Straight or Heterosexual Spiritual care concerns: No Comments At time of signature, agree with nursing past medical, surgical, social and family history. There is no relevant family history pertinent to the presenting complaint Exam Narrative: GENERAL: Well-appearing, well-nourished, and in no acute distress. HEAD: Normocephalic EYES: PERRLA, conjunctivae clear ENT: Nares clear, turbinates edematous and erythematous. Mucous membranes moist. TM pearly pinon with dull light reflex bilaterally; no tragal tenderness. Oropharynx not erythematous without lesions. Tonsils not enlarged and without exudate, no drooling, no hoarseness, no trismus, uvula midline. NECK: Supple. No lymphadenopathy CHEST: Clear to auscultation, breath sounds equal. No wheezing, rhonchi, rales, or stridor. No respiratory distress, speaks in full sentences. HEART: Regular rate and rhythm. No murmur heard. SKIN: Warm, dry, no rash. NEURO: Alert and oriented x3. PSYCH: Normal mood and affect Course Course Emergency Course: Patient is aware of diagnosis, understands and agrees to treatment plan. Anticipatory guidance given. Patient agrees to follow-up a
== END 2022-07-21 12:00 | disposition home or self-care (01) ==
PROVIDERS: Emergency Provider Nurse Practitioner; PCP Family Medicine
DX: J32.9 Chronic sinusitis, unspecified (principal); Z87.891 Personal history of nicotine dependence
CPT/HCPCS: 99213; G0463

== ENCOUNTER 2024-09-04 14:03 | Outpatient (CLI) | payer OTHER, SELFPAY ==
--- NOTE | ~2024-09-04 | XR_ITS ---
3 VIEWS LUMBAR SPINE Ordering provider: Franca Leung PA-C History: . M54.9 - Dorsalgia, unspecified . Comparison: None. FINDINGS: VERTEBRAL BODIES: No visible fracture or subluxation. DISK SPACES: Normal. SOFT TISSUES: Normal. IMPRESSION: No acute osseous abnormality lumbar spine. Reviewed, dictated and finalized at location A. IFIED MASTER SAFE TECHNICIAN
--- NOTE | ~2024-09-04 | XR_ITS ---
3 VIEWS THORACIC SPINE Ordering provider: Franca Leung PA-C History: . M54.9 - Dorsalgia, unspecified . Comparison: None. FINDINGS: VERTEBRAL BODIES: Normal height and alignment. No visible fracture or subluxation. DISK SPACES: Normal. SOFT TISSUES: Normal. IMPRESSION: No acute osseous abnormality of the thoracic spine. Reviewed, dictated and finalized at location A. AL CHAIRSIDE ASSISTANT
== END 2024-09-04 14:04 | disposition home or self-care (01) ==
LOC: MICIMG 14:04
PROVIDERS: PCP Family Medicine; Visit Provider Physician Assistant
DX: M54.9 Dorsalgia, unspecified (principal)
CPT/HCPCS: 72070; 72100

== ENCOUNTER 2025-09-15 15:25 | Outpatient (CLI) | payer OTHER, SELFPAY ==
--- NOTE | ~2025-09-15 | MR_ITS ---
EXAMINATION: MR lumbar spine wo con DATE: 09/15/2025 16:12 INDICATION: Low back pain, unspecified. TECHNIQUE: Magnetic resonance imaging (MRI) of the lumbar spine was performed without intravenous contrast. COMPARISON: Lumbar spine radiographs 09/04/2024 FINDINGS: Alignment is normal. Vertebral body heights are normal. There is a hemangioma in L1 vertebral body. Intervertebral disc heights are normal. The distal spinal cord signal intensity is normal. The conus medullaris is at L2. The following disc levels are specifically discussed: L1-L2: The disc does not extend beyond the endplate margin. There is moderate bilateral facet joint osteoarthritis. There is no neural foraminal stenosis. There is no central canal stenosis. L2-L3: The disc is bulging. There is moderate bilateral facet joint osteoarthritis. There is mild bilateral neural foraminal stenosis. There is mild central canal stenosis. L3-L4: There is a left foraminal protrusion. There is moderate bilateral facet joint osteoarthritis. There is mild left neural foraminal stenosis. There is no central canal stenosis. L4-L5: The disc is bulging. There is severe bilateral facet joint osteoarthritis. There is mild bilateral neural foraminal stenosis. There is mild central canal stenosis. L5-S1: The disc is bulging and has an annular fissure. There is moderate bilateral facet joint osteoarthritis. There is mild bilateral neural foraminal stenosis. There is mild central canal stenosis. IMPRESSION: 1. Mild lumbar spondylosis. Reviewed, dictated and finalized at location E. ICE ADMINISTRATOR IMPRESSION: 1. Mild lumbar spondylosis.
== END 2025-09-15 15:26 | disposition home or self-care (01) ==
LOC: GOSHIMG 15:25
PROVIDERS: PCP Family Medicine; Visit Provider Physician Assistant
DX: M79.604 Pain in right leg (principal); M47.896 Other spondylosis, lumbar region
CPT/HCPCS: 72148